=== PATIENT | female | born 1950 | race African-American/Black ===

== ENCOUNTER 2017-08-03 18:23 | Emergency (ER) | payer OTHER ==
[~2017-08-03] VITALS: Ht 175.3 cm; Wt 90.7 kg
[~2017-08-03 18:23] MED LIST: LISINOPRIL-HCT1 EAC2 PO; NORVASC5 MG PO; PRAVACHOL40 MG PO; TIMOLOL MA0.5 %/5 M2; XALATAN2.5 ML OPHTHALMIC
[2017-08-03] MEDS ORDERED: ROBAXIN500 MG PO (19:17)
[2017-08-03] MEDS ORDERED: NAPROXEN375 MG PO (19:17)
[2017-08-03 20:26] VITALS: BP 128/76
== END 2017-08-03 20:29 | disposition home or self-care (01) ==
LOC: ER 18:23
DX: M54.42 Lumbago with sciatica, left side (principal); Z85.53 Personal history of malignant neoplasm of renal pelvis